=== PATIENT | male | born 1975 | race Caucasian/White ===

== ENCOUNTER 2025-02-03 20:15 | Emergency (ER) | payer MEDICAID, SELFPAY ==
--- NOTE | ~2025-02-03 | XR_ITS ---
CLINICAL HISTORY: sob Single view of the chest. Findings: Heart size is normal. There is no consolidation. No pleural effusions are seen. Impression: No consolidation. This document has been electronically signed by: Art Gallardo MD on 02/03/2025 20:49:06
[2025-02-03 20:19] VITALS: BP 152/97; PULSE 98; RESP 22; TEMP 36.6; O2SAT 91; BMI 32.9
[2025-02-03 21:02] LABS: MANUAL DIFF FLAG NO
[2025-02-03 21:04] LABS: Hematocrit 44.2 % (42.0-52.0); Hemoglobin 14.5 g/dl (14.0-18.0); Imm Gran Abs Auto 0.02 X10*3/uL (0.00-0.03); Imm Gran Pct Auto 0.3 % (0.0-0.4); Lymphocytes Absolute Auto 1.6 X10*3/uL (1.2-4.9); Mean Corpuscular HGB Conc 32.8 g/dl (31.0-36.0); Mean Corpuscular Hemoglobin 27.1 pg (27.0-33.0); Mean Corpuscular Volume 82.6 fL (80.0-98.0); NRBC Abs Auto 0.000 X10*3/uL (0.0-0.012); NRBC Pct Auto 0.0 /100WBC (0.0-0.2); Platelet Count 249 X10*3/uL (160-400); Red Blood Count 5.35 X10*6/uL (4.60-5.80); White Blood Count 6.7 X10*3/uL (4.8-10.8)
--- OUTSIDE RECORDS SUMMARY | 2025-02-03 21:05 | XMS_ITS ---
Author Name [facility] Organization Unknown Results Test Name/Text Value Interpretation Date Range Source Lipase SerPl-cCnc 22.0 U/L Normal 02/18/2024 13 - 60 H [facility]CT Creat SerPl-mCnc 0.9 mg/dL Normal 02/18/2024 0.5 - 1.3 HH CCT Chloride SerPl-sCnc 104.0 mmol/L Normal 02/18/2024 98 - 1 07 H[facility]CT CO2 SerPl-sCnc 26.0 mmol/L Normal 02/18/2024 22 - 33 HH CCT Albumin/Glob SerPl 1.4 Ratio Normal 02/18/2024 1 - 3 [facility] Sodium SerPl-sCnc 140.0 mmol/L Normal 02/18/2024 136 - 14 5 H[facility]CT BUN SerPl-mCnc 15.0 mg/dL Normal 02/18/2024 8 - [address] AST SerPl-cCnc 19.0 U/L Normal 02/18/2024 10 - 55 [facility]CC T Globulin Ser Calc-mCnc 2.8 g/dL Normal 02/18/2024 1.5 - 3.9 H[facility]CT Prot SerPl-mCnc 6.7 g/dL Normal 02/18/2024 6.3 - 8.[address] GFR/BSA.pred SerPlBld EGC-WVG-KqGGle >90.0 Normal 02/18/2024 59 - HHCCT Bilirub SerPl-mCnc 0.5 mg/dL Normal 02/18/2024 0.2 - 1 [facility] Albumin SerPl-mCnc 3.9 g/dL Normal 02/18/2024 3.5 - 5 [facility] Potassium SerPl-sCnc 4.7 mmol/L Normal 02/18/2024 3.4 - 5 .3 [facility]CT Calcium SerPl-mCnc 9.2 mg/dL Normal 02/18/2024 8.7 - 10.5 [facility]CT ALP SerPl-cCnc 49.0 U/L Normal 02/18/2024 45 - 128 [facility] T BUN/Creat SerPl 17.0 Ratio Normal 02/18/2024 10 - 25 HH CCT Anion Gap Bld-sCnc 10.0 Normal 02/18/2024 7 - 17 [facility]CT Glucose SerPl-mCnc 93.0 mg/dL Normal 02/18/2024 65 - 99 H[facility]CT ALT SerPl-cCnc 21.0 U/L Normal 02/18/2024 10 - 55 [facility] T Basophils/leuk NFr Bld Auto 0.3 % Normal 02/18/2024 [facility]CT RDW RBC Auto-Rto 12.9 % Normal 02/18/2024 11.5 - 14.5 [facility]CT Lymphocytes num Bld Auto 1.3 Thou/uL Below low normal 2023 1.5 - 4.5 [facility]CT Lymphocytes/leuk NFr Bld Auto 14.9 % Normal 02/18/2024 H[facility]CT MCH RBC Qn Auto 28.1 pg Normal 02/18/2024 27 - [address] Eosinophil num Bld Auto 0.22 Thou/uL Normal 02/18/2024 0 - 0.7 [facility]CT Neutrophils num Bld Auto 6.15 Thou/uL Normal 02/18/2024 2 - 7.5 [facility]CT Platelet num Bld Auto 224.0 Thou/uL Normal 02/18/2024 150 - 450 [facility]CT Monocytes/leuk NFr Bld Auto 11.6 % Normal 02/18/2024 [facility]CT Eosinophil/leuk NFr Bld Auto 2.5 % Normal 02/18/2024 H[facility]CT Imm Granulocytes/leuk NFr Bld Auto 0.3 % Normal 02/18/2024 H[facility]CT MCHC RBC Auto-mCnc 32.5 g/dL Normal 02/18/2024 30 - 36 [facility]CT Basophils num Bld Auto 0.03 Thou/uL Normal 02/18/2024 0 - 0.2 H[facility]CT Hgb Bld-mCnc 13.9 g/dL Normal 02/18/2024 13 - 17.7 H[facility]CT WBC num Bld Auto 8.7 Thou/uL Normal 02/18/2024 4 - 11 [facility]CT Neutrophils/leuk NFr Bld Auto 70.4 % Normal 02/18/2024 H[facility]CT MCV RBC Auto 87.0 fL Normal 02/18/2024 80 - 100 [facility]CT Monocytes num Bld Auto 1.01 Thou/uL Normal 02/18/2024 0.2 - 1.5 H[facility]CT Imm Granulocytes num Bld Auto 0.03 Thou/uL Normal 02/18/2024 0 - 0.1 HHCCT Hct VFr Bld Auto 42.8 % Normal 02/18/2024 39 - 54 HH CCT RBC num Bld Auto 4.95 Mil/uL Normal 02/18/2024 4.5 - 6.2 H[facility]CT PMV Bld Auto 9.7 fL Normal 02/18/2024 7.5 - 12.5 H[facility]CT History of Medication Use Medication Directions Dispensed Refills Start Date End Date Stat methylPREDNISolone (MEDROL DOSEPAK) 4 MG tablet Take as directed until done, begin morning of 12/04/2023. 12/03/2023 active oxyCODONE-acetaminophen (PERCOCET) 5-325 mg per tablet Take 1 tablet by mouth 3 times daily (every 8 hours) as needed for severe pain (pain). Max Daily Amount: 3 tablets 12/03/2023 active gabapentin (NEURONTIN) 100 MG capsule Take 1 capsule (100 mg total) by mouth 3 (three) times a day as needed for pain or muscle spasms. 10/23/2023 active lidocaine (LIDODERM) 5 % patch Place 1 patch on the skin daily. Apply patch over most tender area of your shoulder, 12 hours on, 12 hours off. Have some of the patch go towards the back of your shoulder 10/23/2023 active methocarbamol (ROBAXIN) 500 MG tablet Take 1 tablet (500 mg total) by mouth 3 (three) times a day as needed for muscle spasms (pain). 10/23/2023 active furosemide (LASIX) 20 MG tablet Take 1 tablet (20 mg total) by mouth daily. 03/30/2023 active oxyCODONE-acetaminophen (PERCOCET) 5-325 mg per tablet Take 1-2 tablets by mouth Every 4 (four) to 6 (six) hours as needed for moderate pain (pain). Max Daily Amount: 12 tablets 03/01/2023 active fluticasone-salmeterol (ADVAIR) 250-50 mcg/inh diskus inhaler Inhale 1 puff 2 (two) times a day. 01/01/2023 active cephalexin (KEFLEX) 500 MG capsule Take 1 capsule (500 mg total) by mouth 4 (four) times a day. 10/21/2022 active oxyCODONE (ROXICODONE) 5 MG immediate release tablet Take 1 tablet (5 mg total) by mouth 3 times daily (every 8 hours) as needed for severe pain. Max Daily Amount: 15 mg 10/10/2022 active acetaminophen (TYLENOL) 500 MG tablet Take 1 tablet (500 mg total) by mouth 4 times daily (every 6 hours) as needed for mild pain (pain). 07/24/2021 active cefpodoxime (VANTIN) 200 MG tablet Take 2 tablets (400 mg total) by mouth 2 (two) times a day. 07/24/2021 active sulfamethoxazole-trimeth oprim (BACTRIM DS,SEPTRA DS) 800-160 MG per tablet Take 1 tablet by mouth 2 (two) times a day. Take as directed or until you run out. Take with lots of fluids. 07/24/2021 active clindamycin (CLEOCIN) 300 MG capsule Take 1 capsule (300 mg total) by mouth 3 (three) times a day. Take as directed or until you run out 10/19/2020 active triamcinolone (KENALOG) 0.1 % cream Apply topically 3 (three) times a day. to affected area, do not to apply to face or internally 08/26/2020 active Allergies Allergen Reaction Severity Comment Documented Date Source Statu s IBUPROFEN SWELLING 10/23/2023 [facility] active PENICILLINS UNKNOWN/PATIENT AND FAMILY UNABLE TO DEFINE 04/18/2018 [facility] active ASPIRIN UNKNOWN/PATIENT AND FAMILY UNABLE TO DEFINE [facility] Problems Problem Status Onset Date Problem Type Date of Resoluti on Source Scrotal abscess active 2019-09-07 ProblemAct [facility] Immunizations Vaccine Date Source Lot Number Status Tdap 10/20/2022 [facility] [id number] completed Encounters Encounter Type Encounter Reason Primary Diagnosis Location Date Emergency Gastritis, unspecified, without bleeding Gastritis, unspecified, without bleeding [facility] 02/18/2024 Emergency Pain in unspecified shoulder Pain in unspecified shoulder [facility] 02/04/2024 Emergency Bicipital tendinitis, left shoulder Bicipital tendinitis, left shoulder [facility] 01/06/2024 Emergency Other enthesopathies, not elsewhere classified Other enthesopathies, not elsewhere classified [facility] 12/03/2023 Emergency Contusion of right front wall of thorax, initial encounter Contusion of right front wall of thorax, initial encounter [facility] 10/23/2023 Emergency Edema, unspecified Edema, unspecified [facility] 03/30/2023 Emergency Lumbago with sciatica, right side Lumbago with sciatica, right side [facility] 03/01/2023 Emergency Dorsalgia, unspecified Dorsalgia, unspecified [facility] 02/09/2023 Emergency Dorsalgia, unspecified Dorsalgia, unspecified [facility] 01/01/2023 Emergency Encounter for removal of sutures Encounter for removal of sutures [facility] 10/28/2022 Emergency Laceration without foreign body of unspecified forearm, initial encounter Laceration without foreign body of unspecified forearm, initial encounter [facility] 10/20/2022 Emergency Dorsalgia, unspecified Dorsalgia, unspecified [facility] 10/10/2022 Emergency Neck Pain [facility] 08/27/2022 Emergency Periorbital cellulitis [facility] 07/24/2021 Emergency Dorsalgia, unspecified [facility] 03/09/2021 Emergency Cutaneous absces s, unspecified [facility] 01/28/2021 Emergency Contusion of rig ht ankle, initial encounter [facility] 01/07/2021 Emergency Dorsalgia, unspecified [facility] 12/19/2020 Care Team Organization Name Specialty Phone Email Start Date End Da te [facility] 12/24/2024 [facility] 07/15/2024 025 [facility] 2023 [facility] 01/04/2023 025 [facility] 10/28/2022 05/20/2024 [facility] 10/20/2022 10/20/2022 [facility] Primary Care 08/27/2022 05/20/2024 [facility] Primary Care 08/27/2022 08/27/2022 [facility] 01/03/2022 [facility] PCP,No Primary Care 07/24/2021 05/20/2024 [facility] NO PCP Primary Care 10/19/2020 07/24/2021
[2025-02-03 21:17] LABS: Alanine Aminotransferase 29 U/L (0-40); Albumin Level 4.5 g/dL (3.5-5.0); Alkaline Phosphatase 52 U/L (39-117); Anion Gap 12 (12-20); Aspartate Amino Transferase 23 U/L (5-37); Blood Urea Nitrogen 19 mg/dL (9-16); Calcium 9.4 mg/dL (8.4-10.2); Carbon Dioxide 27 mmol/L (22-29); Chloride 108 mmol/L (96-108); Creatinine Clr Calc Pharmacy 114.5; Estimated Glomerular Filt Rate > 60; Potassium 3.6 mmol/L (3.3-5.1); Sodium 143 mmol/L (135-145); Total Protein 7.1 g/dL (6.5-8.0)
[2025-02-03 21:38] LABS: Resp Syncy Virus RNA Qual PCR NEGATIVE (Negative); SARS COV2 PCR INHOUSE NEGATIVE (Negative)
[2025-02-03 23:29] VITALS: BP 130/90; PULSE 91; RESP 20; TEMP 36.6; O2SAT 98
--- NOTE | 2025-02-03 23:38 | ED_ITS ---
HPI - Asthma General Chief Complaint: Asthma Stated Complaint: Asthma Time Seen by Provider: 02/03/25 23:14 Source: patient, family, RN notes reviewed and claim specialist Mode of arrival: ambulatory Limitations: language barrier History of Present Illness ED Provider: Arnel HPI Narrative: Patient is a 49 year old male with a past medical history of asthma presenting today with SOB. Pt states around 2pm the symptoms exacerbated and has ran out of his inhaler. 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 Pt denies fever, chest pain, sore throat, recent illness. Related Data Previous Rx's ?Medication ?Instructions ?Recorded albuterol sulfate 90 mcg/actuation 2 puff inhalation Q 4-6H PRN 02/04/25 aerosol inhaler (Ventolin HFA) shortness of breath or wheezing #8.5 grams prednisone 20 mg tablet 40 mg (2 x 20 mg) PO DAILY # 10 tabs 02/04/25 Allergies Allergy/AdvReac Type Severity Reaction Status Date / Time aspirin Allergy Swelling Verified 02/04/25 00:25 Penicillins Allergy Chest Pain Verified 02/04/25 00:25 Review of Systems 2 Constitutional: Constitutional: Reports as per HPI, Denies chills, Denies fatigue, Denies fever(s) and Denies headache(s) ENT: Denies headache(s) Cardiovascular: Cardiovascular: Denies chest pain and Reports dyspnea Respiratory: Respiratory: Denies cough and Reports dyspnea Gastrointestinal: Gastrointestinal: Denies abdominal pain, Denies constipation and Denies vomiting Genitourinary: Genitourinary: Denies difficulty urinating and Denies dysuria Musculoskeletal: Musculoskeletal: Denies back pain Integumentary/Breasts: Skin/Breast: Denies rash Neurologic: Denies headache(s) and Denies focal weakness Endocrine: Endocrine: Denies fatigue PMFSH Social History Social History Advance Directives: No Advance Directives Information Provided: Yes Do you have a plan to hurt others: No Plan Physical Exam 2 Vital Signs: Vital Signs: Last Vital Signs Temp 97.8 F 02/03/25 23:29 Pulse 78 02/04/25 00:42 Resp 18 02/04/25 00:42 BP 130/90 H 02/03/25 23:29 Pulse Ox 98 12/03/25 23:29 O2 Del Method Room Air 12/03/25 23:29 BMI result Body Mass Index 32.9 Const: General: healthy appearing, comfortable, no acute distress, alert and awake Nutritional Appearance: well nourished Orientation/consciousness: p atient oriented x3 HEENT: Head: Yes normocephalic and Yes atraumatic Eyes: Eyelids: Yes eyelids normal Conjunctivae: conjunctivae normal S clerae: sclerae normal Corneas: corneas normal Neck: Neck: Yes full ROM Resp: Effort & Inspection: normal respiratory effort, able to speak in complete sentences, no audible wheezes and not labored Auscultation: wheezes left lower, right lower and right upper Skin: General skin exam: no rashes or lesions noted and elasticity normal Neuro: General: patient oriented x3 Cranial nerves: Yes Bilaterally intact EOM present Cognition (Neuro): normal cognition Medications Administered Discontinued Medications Generic Name Dose Route Start Last Admin Trade Name Freq PRN Reason Stop Dose Admin Prednisone 60 mg 02/04/25 00:06 02/04/25 00:25 Prednisone 20 Mg Tablet PO 02/04/25 00:07 60 mg ONCE ONE Administration Medical Decision Making Medical Decision Making [facility] Narrative: 49-year-old male past medical history significant for asthma presents for evaluation of shortness of breath that is worse since working with the chemicals at work. He does have some wheezing on exam. No fevers or chills, no cough. He has no leg swelling or history of CHF. The patient is a workup that included screening labs which were unremarkable, he had a chest x-ray that did not show any infiltrates or effusions. Viral swabs are negative. His history exam is most consistent with an asthma exacerbation in his likely due to chemical irritants. We will treat with ED bronchodilator protocol and prednisone. No indication for antibiotic use at this time. Differential Diagnosis Differential Diagnoses: The differential diagnosis associated with the presentation includes Asthma exacerbation Pneumonia Bronchitis Covid/Flu Admission/Observation Consideration of admission/observation: Escalation of care including admission/observation considered Lab Data [facility] Lab Attestation statement: I reviewed the patient's lab results. As above 02/03/25 20:54 02/03/25 20:54 Labs: Lab Results 02/03/25 Range/Units 20:54 WBC 6.7 (4.8-10.8) X10*3/uL RBC 5.35 (4.60-5.80) X10*6/uL Hgb 14.5 (14.0-18.0) g/dl Hct 44.2 (42.0-52.0) % MCV 82.6 (80.0-98.0) fL MCH 27.1 (27.0-33.0) pg MCHC 32.8 (31.0-36.0) g/dl RDW 12.7 (11.0-16.0) % Plt Count 249 (160-400) X10*3/uL MPV 9.9 (9.4-12.4) fL Immature Gran % (Auto) 0.3 (0.0-0.4) % Neut % (Auto) 60.4 (45-73) % Lymph % (Auto) 23.1 (20-40) % [place] % (Auto) 9.5 (2-11) % Eos % (Auto) 6.4 H (0-4) % Baso % (Auto) 0.3 (0-2) % Lymph # (Auto) 1.6 (1.2-4.9) X10*3/uL [place] # (Auto) 0.6 (0.1-1.2) X10*3/uL Eos # (Auto) 0.4 (0.0-0.4) X10*3/uL Baso # (Auto) 0.0 (0.0-0.2) X10*3/uL Abs Immat Gran (auto) 0.02 (0.00-0.03) X10*3/uL Absolute Neuts (auto) 4.1 (2.0-8.3) x10*3/uL Absolute Nucleated RBC 0.000 (0.0-0.012) X10*3/uL Nucleated RBC % (auto) 0.0 (0.0-0.2) /100WBC Sodium 143 (135-145) mmol/L Potassium 3.6 (3.3-5.1) mmol/L Chloride 108 (96-108) mmol/L Carbon Dioxide 27 (22-29) mmol/L Anion Gap 12 (12-20) BUN 19 H (9-16) mg/dL Creatinine 0.95 (0.5-1.4) mg/dL Estim Creat Clear Calc 114.5 Estimated GFR > 60 Random Glucose 114 (60-115) mg/dL Calcium 9.4 (8.4-10.2) mg/dL Total Bilirubin 0.3 (0.0-1.0) mg/dL AST 23 (5-37) U/L ALT 29 (0-40) U/L Alkaline Phosphatase 52 (39-117) U/L Total Protein 7.1 (6.5-8.0) g/dL Albumin 4.5 (3.5-5.0) g/dL Influenza Type A (PCR) NEGATIVE (Negative) Influenza Type B (PCR) NEGATIVE (Negative) RSV RNA Qual (PCR) NEGATIVE (Negative) SARS-CoV-2 RNA (RT-PCR) NEGATIVE (Negative) Independent Interpretation I performed an independent interpretation of an: Plain X-Ray Interpretation: no focail infiltrates Radiology Impression Discussion of test interpretation with radiology: I have reviewed the radiologist's reading. Radiologist Impression: Findings: Heart size is normal. There is no consolidation. No pleural effusions are seen. Impression: No consolidation. This document has been electronically signed by: Art Gallardo MD on 02/03/2025 20:49:06 Discharge Plan Discharge Clinical Impression: Asthma with acute exacerbation Patient Disposition: Home, Self-Care Instructions: Asthma (ED) Additional Instructions: Your workup in the ER today was reassuring. I do recommend that you get established with a primary doctor. The meantime I prescribed prednisone to help with your asthma exacerbation and albuterol to use as needed for shortness of breath and wheezing. Follow up with your primary doctor, return for new or worsening symptoms Prescriptions: New prednisone 20 mg tablet 40 mg PO DAILY Qty: 10 0RF albuterol sulfate [Ventolin HFA] 90 mcg/actuation HFA aerosol inhaler 2 puff inhalation Q4-6H PRN (Reason: shortness of breath or wheezing) Qty: 8.5 0RF Print Language: Haitian
[2025-02-04 00:42] VITALS: PULSE 78; RESP 18; O2SAT 96
[2025-02-04] MEDS: Albuterol Sulfate 2.5 MG, Albuterol/Iprat 2.5/0.5MG 3 ML 3 ML INHALE (01:13)
[2025-02-04 01:19] VITALS: BP 0/0; PULSE 78; RESP 18; TEMP -17.7; TEMP 0
== END 2025-02-04 01:20 | disposition home or self-care (01) ==
PROVIDERS: Emergency Provider Emergency Medicine
DX: J45.901 Unspecified asthma with (acute) exacerbation (principal); R06.02 Shortness of breath; Z03.818 Encounter for observation for suspected exposure to other biological agents ruled out; Z79.51 Long term (current) use of inhaled steroids
CPT/HCPCS: 71045; 80053; 85025; 87637; 94640; 99284

== ENCOUNTER → 2025-02-03 20:29 | Outpatient (BNV) | payer MEDICAID, SELFPAY | PROVIDERS: Visit Provider Radiology Diagnostic Radiology | DX: R06.02 Shortness of breath (principal) | CPT/HCPCS: 71045 ==

== ENCOUNTER 2025-02-11 11:22 | Emergency (ER) | payer MEDICAID, SELFPAY ==
--- NOTE | ~2025-02-11 | XR_ITS ---
EXAMINATION: XR CHEST CLINICAL INFORMATION: SOB COMPARISON: 02/03/2025. TECHNIQUE: 2 views of the chest were obtained. FINDINGS: The cardiac, hilar, and mediastinal contours are normal. Lungs demonstrate no segmental consolidative opacity. There is a suggestion of some mild peribronchial thickening in the right lower lobe distribution and left hilum, could indicate inflammatory airways disease. There is no pneumothorax or pleural effusion. There is no focal osseous or soft tissue abnormality. XR/XR chest 2V IMPRESSION: Suggestion of mild peribronchial thickening in the lower lobe distributions and perihilar regions, suggesting possible inflammatory airways disease. No segmental consolidative pneumonia. Electronically signed by: Julius Rodriguez MD 02/11/2025 01:02 PM [facility]
[2025-02-11 11:50] VITALS: BP 138/96; PULSE 120; RESP 18; TEMP 36.8; O2SAT 94; BMI 32.7
--- NOTE | 2025-02-11 11:50 | ED_ITS ---
HPI - SOB/Dyspnea General Chief Complaint: Dyspnea Stated Complaint: asthma diff breathing Time Seen by Provider: 02/11/25 12:38 Source: patient Mode of arrival: ambulatory Limitations: no limitations History of Present Illness ED Provider: Dr. Rosas HPI Narrative: 50-year-old male history of asthma presented hospital today for coughing. Staffing some sore throat upper respiratory infection symptoms. Symptoms was worsened yesterday therefore he presents today for evaluation. Related Data Previous Rx's ?Medication ?Instructions ?Recorded albuterol sulfate 90 mcg/actuation 2 puff inhalation Q 4-6H PRN 02/04/25 aerosol inhaler (Ventolin HFA) shortness of breath or wheezing #8.5 grams prednisone 20 mg tablet 40 mg (2 x 20 mg) PO DAILY # 10 tabs 02/04/25 albuterol sulfate 90 mcg/actuation 2 puff inhalation Q 6H PRN 02/11/25 aerosol inhaler (Ventolin HFA) shortness of breath or wheezing #6.7 grams benzonatate 200 mg capsule 200 mg PO TID PRN cough #20 caps 02/11/25 prednisone 20 mg tablet 40 mg (2 x 20 mg) PO DAILY 5 days 02/11/25 #10 tabs Allergies Allergy/AdvReac Type Severity Reaction Status Date / Time aspirin Allergy Swelling Verified 02/11/25 11:53 Penicillins Allergy Chest Pain Verified 02/11/25 11:53 Review of Systems 2 Review of Systems: Pertinent review of systems as mentioned in HPI. All other system otherwise negative. [facility] Past Medical History [facility] Narrative: Medical history as mentioned in HPI Social History Social History Smoked in Last 30 Days: No Use of substances other than those prescribed or required for medical reasons: No Advance Directives: No Advance Directives Information Provided: No Physical Exam 2 Exam: Exam: General: Pleasant, no distress, interacting appropriately Head: Normacephalic, atraumatic ENT: oral mucosa moist, neck supple, no tracheal deviation Cardiovascular: regular rate, regular rhythm, no murmurs, rubbing, gallops Respiratory: Bilateral wheezing on exam. It is slightly diminished lung sounds on the right side compared to left. Skin: Warm and dry Psychiatric: Appropriate mood and thoughts Vital Signs: Vital Signs: Last Vital Signs Temp 97.8 F 02/11/25 13:29 Pulse 98 02/11/25 13:29 Resp 18 02/11/25 13:29 BP 134/78 02/11/25 13:29 Pulse Ox 94 02/11/25 13:29 O2 Del Method Room Air 02/11/25 13:29 BMI result Body Mass Index 32.7 Course Course Course Narrative: This is an RME: Additional HPI, ROS, PE not included below will be deferred to primary provider. RME assessment and note performed by: Margo Ruby PA-C This is a 50-year-old male, with a past medical history of asthma, who presents emergency department shortness for breath, she will and chest tightness which started last night. Inspiratory and expiratory wheezes noted throughout. Pt to be brought back given pt tachy in the 120s. Plan: Labs, EKG, CXR, viral swabs Medications Administered Discontinued Medications Generic Name Dose Route Start Last Admin Trade Name Freq PRN Reason Stop Dose Admin Acetaminophen 975 mg 02/11/25 12:59 02/11/25 13:25 Acetaminophen 325 Mg Tablet PO 02/11/25 13:00 975 mg ONCE ONE Administration Albuterol Sulfate 4 puff 02/11/25 12:31 02/11/25 13:05 Albuterol Sulfate 90 Mcg 8 Gm Inhaler INHALE 02/11/25 12:32 4 puff ONCE ONE Administration Benzonatate 200 mg 02/11/25 13:00 02/11/25 13:26 Benzonatate 100 Mg Capsule PO 02/11/25 13:01 200 mg ONCE ONE Administration Prednisone 40 mg 02/11/25 12:59 02/11/25 13:25 Prednisone 20 Mg Tablet PO 02/11/25 13:00 40 mg ONCE ONE Administration Medical Decision Making Medical Decision Making MDM Narrative: 50-year-old male presented hospital today for evaluation of shortness of breath and asthma exacerbation. He does have obvious wheezing. Chest x-ray did not show any signs of pneumonia. Lab work is unremarkable troponin is negative. I suspect his chest pain is likely secondary from his coughing and asthma exacerbation. ED brown protocol activated for the patient. We will plan to give patient a dose of prednisone here. Tessalon Perles will be given for his cough as well. Dose of Tylenol will be given to the patient. He does feel warm to touch. Reassess patient after treatment. We will plan to obtain a pulse ox ambulation. Sats at 94% on pulse ox ambulation. Patient feels much more improved. We will plan to discharge patient with prednisone course, refill for his albuterol, Tessalon Perles will be prescribed to the patient as well. Discussed with him to follow up with his primary care doctor as well. Patient will be discharged. Differential Diagnosis Differential Diagnoses: The differential diagnosis associated with the presentation includes Asthma exacerbation, URI, viral infection Lab Data MDM Lab Attestation statement: I reviewed the patient's lab results. 02/11/25 12:11 02/11/25 12:11 Labs: Lab Results 02/11/25 Range/Units 12:11 WBC 12.2 H (4.8-10.8) X10*3/uL RBC 5.96 H (4.60-5.80) X10*6/uL Hgb 16.1 (14.0-18.0) g/dl Hct 49.2 (42.0-52.0) % MCV 82.6 (80.0-98.0) fL MCH 27.0 (27.0-33.0) pg MCHC 32.7 (31.0-36.0) g/dl RDW 12.8 (11.0-16.0) % Plt Count 287 (160-400) X10*3/uL MPV 10.3 (9.4-12.4) fL Immature Gran % (Auto) 0.4 (0.0-0.4) % Neut % (Auto) 76.6 H (45-73) % Lymph % (Auto) 8.5 L (20-40) % [place] % (Auto) 9.0 (2-11) % Eos % (Auto) 5.3 H (0-4) % Baso % (Auto) 0.2 (0-2) % Lymph # (Auto) 1.0 L (1.2-4.9) X10*3/uL [place] # (Auto) 1.1 (0.1-1.2) X10*3/uL Eos # (Auto) 0.6 H (0.0-0.4) X10*3/uL Baso # (Auto) 0.0 (0.0-0.2) X10*3/uL Abs Immat Gran (auto) 0.05 H (0.00-0.03) X10*3/uL Absolute Neuts (auto) 9.3 H (2.0-8.3) x10*3/uL Absolute Nucleated RBC 0.000 (0.0-0.012) X10*3/uL Nucleated RBC % (auto) 0.0 (0.0-0.2) /100WBC Sodium 140 (135-145) mmol/L Potassium 4.3 (3.3-5.1) mmol/L Chloride 106 (96-108) mmol/L Carbon Dioxide 28 (22-29) mmol/L Anion Gap 10 L (12-20) BUN 15 (9-16) mg/dL Creatinine 0.84 (0.5-1.4) mg/dL Estim Creat Clear Calc 127.6 Estimated GFR > 60 Random Glucose 106 (60-115) mg/dL Calcium 9.7 (8.4-10.2) mg/dL Magnesium 2.1 (1.6-2.6) mg/dL Total Bilirubin 0.5 (0.0-1.0) mg/dL Direct Bilirubin 0.2 (0.0-0.5) mg/dL AST 22 (5-37) U/L ALT 27 (0-40) U/L Alkaline Phosphatase 58 (39-117) U/L Troponin I High Sens 4.0 (<3.5-35.0) ng/L Total Protein 7.8 (6.5-8.0) g/dL Albumin 4.8 (3.5-5.0) g/dL Influenza Type A (PCR) NEGATIVE (Negative) Influenza Type B (PCR) NEGATIVE (Negative) RSV RNA Qual (PCR) NEGATIVE (Negative) SARS-CoV-2 RNA (RT-PCR) NEGATIVE (Negative) Independent Interpretation I performed an independent interpretation of an: Plain X-Ray Radiology Impression Discussion of test interpretation with radiology: I have reviewed the radiologist's reading. Chronic Conditions Asthma Discharge Plan Discharge Clinical Impression: Asthma with exacerbation Patient Disposition: Home, Self-Care Instructions: Asthma (ED) Additional Instructions: Follow up with your primary care doctor in a week to make sure you are feeling better Prescriptions: New prednisone 20 mg tablet 40 mg PO DAILY 5 Days Qty: 10 0RF albuterol sulfate [Ventolin HFA] 90 mcg/actuation HFA aerosol inhaler 2 puff inhalation Q6H PRN (Reason: shortness of breath or wheezing) Qty: 6.7 0RF benzonatate 200 mg capsule 200 mg PO TID PRN (Reason: cough) Qty: 20 0RF No Action prednisone 20 mg tablet 40 mg PO DAILY Qty: 10 0RF albuterol sulfate [Ventolin HFA] 90 mcg/actuation HFA aerosol inhaler 2 puff inhalation Q4-6H PRN (Reason: shortness of breath or wheezing) Qty: 8.5 0RF Print Language: Uzbek
--- NOTE | 2025-02-11 11:52 | ECG_ITS ---
Test Reason : cp Blood Pressure : */* mmHG Vent. Rate : 118 BPM Atrial Rate : 118 BPM P-R Int : 124 ms QRS Dur : 80 ms QT Int : 306 ms P-R-T Axes : 69 74 37 degrees QTcB Int : 428 ms Sinus tachycardia Otherwise normal ECG No previous ECGs available Referred By: Margo Ruby Electronically Signed By: LINDSEY ALLEN MD
[2025-02-11 12:17] LABS: MANUAL DIFF FLAG NO
[2025-02-11 12:18] LABS: Hematocrit 49.2 % (42.0-52.0); Hemoglobin 16.1 g/dl (14.0-18.0); Imm Gran Abs Auto 0.05 X10*3/uL (0.00-0.03); Imm Gran Pct Auto 0.4 % (0.0-0.4); Lymphocytes Absolute Auto 1.0 X10*3/uL (1.2-4.9); Mean Corpuscular HGB Conc 32.7 g/dl (31.0-36.0); Mean Corpuscular Hemoglobin 27.0 pg (27.0-33.0); Mean Corpuscular Volume 82.6 fL (80.0-98.0); NRBC Abs Auto 0.000 X10*3/uL (0.0-0.012); NRBC Pct Auto 0.0 /100WBC (0.0-0.2); Platelet Count 287 X10*3/uL (160-400); Red Blood Count 5.96 X10*6/uL (4.60-5.80); White Blood Count 12.2 X10*3/uL (4.8-10.8)
[2025-02-11 12:32] VITALS: PULSE 112; RESP 20; O2SAT 95
[2025-02-11 12:41] LABS: Alanine Aminotransferase 27 U/L (0-40); Albumin Level 4.8 g/dL (3.5-5.0); Alkaline Phosphatase 58 U/L (39-117); Anion Gap 10 (12-20); Aspartate Amino Transferase 22 U/L (5-37); Blood Urea Nitrogen 15 mg/dL (9-16); Calcium 9.7 mg/dL (8.4-10.2); Carbon Dioxide 28 mmol/L (22-29); Chloride 106 mmol/L (96-108); Creatinine Clr Calc Pharmacy 127.6; Estimated Glomerular Filt Rate > 60; Magnesium 2.1 mg/dL (1.6-2.6); Potassium 4.3 mmol/L (3.3-5.1); Sodium 140 mmol/L (135-145); Total Protein 7.8 g/dL (6.5-8.0)
[2025-02-11 12:50] LABS: Troponin-I High Sensitivity 4.0 ng/L (<3.5-35.0)
[2025-02-11 12:55] LABS: Resp Syncy Virus RNA Qual PCR NEGATIVE (Negative); SARS COV2 PCR INHOUSE NEGATIVE (Negative)
[2025-02-11] MEDS: Albuterol Sulfate 90 MCG 8 GM INHALER 4 PUFF INHALE (13:05)
[2025-02-11 13:06] VITALS: PULSE 107; RESP 21; O2SAT 95
[2025-02-11 13:29] VITALS: BP 134/78; PULSE 98; RESP 18; TEMP 36.6; O2SAT 94
--- NOTE | 2025-02-11 13:38 | MHC.EDTECH ---
PATIENT WAS AMBULATED FOR 02 TRIAL.PATIENTS O2 PRIOR WAS 94,PULSE RATE 122 AND RESPIRATIONS 20.AFTER AMBULATING PATIENTS O2 STAYED AT 94,PULSE RATE INCREASED TO 130 AND RESPIRATIONS STAYED AT 20.PATIENT INDICATED FEELING BETTER .
[2025-02-11 13:55] VITALS: BP 132/68; PULSE 95; RESP 16; TEMP 36.7; O2SAT 95
== END 2025-02-11 14:01 | disposition home or self-care (01) ==
PROVIDERS: Physician Assistant Medical; Emergency Provider Student in an Organized Health Care Education/Training Program
DX: J45.901 Unspecified asthma with (acute) exacerbation (principal); R06.02 Shortness of breath; R00.0 Tachycardia, unspecified; R07.89 Other chest pain; Z03.818 Encounter for observation for suspected exposure to other biological agents ruled out; Z79.899 Other long term (current) drug therapy
CPT/HCPCS: 71046; 80048; 80076; 83735; 84484; 85025; 87637; 93005; 94640; 99284; 99285

== ENCOUNTER → 2025-02-11 11:52 | Outpatient (BNV) | payer MEDICAID, SELFPAY | PROVIDERS: Emergency Provider Student in an Organized Health Care Education/Training Program; Visit Provider Radiology Diagnostic Radiology | DX: R06.02 Shortness of breath (principal) | CPT/HCPCS: 71046 ==

== ENCOUNTER → 2025-02-11 11:52 | Outpatient (BNV) | payer MEDICAID, SELFPAY | PROVIDERS: Emergency Provider Student in an Organized Health Care Education/Training Program; Visit Provider Internal Medicine Cardiovascular Disease | DX: R00.0 Tachycardia, unspecified (principal) | CPT/HCPCS: 93010 ==